=== PATIENT | female | born 1995 | race African-American/Black ===

== ENCOUNTER 2017-01-07 16:55 | Emergency (ER) | payer OTHER ==
[~2017-01-07] VITALS: Ht 170.2 cm; Wt 120.2 kg
[~2017-01-07 16:55] MED LIST: BUTA1CAP27 PO; IBUP-1060 PO
[2017-01-07 17:39] LABS: BILIRUBIN,URINE NEGATIVE (NEG); GLUCOSE,URINE NEGATIVE (NEG); NITRITE,URINE NEGATIVE (NEG); PROTEIN,URINE NEGATIVE (NEG-TRACE); UROBILINOGEN,URINE 0.2 mg/dL (0.2 mg/dL)
[2017-01-07 17:48] LABS: BACTERIA,URINE MODERATE /HPF (0-FEW); RBC,URINE 0 /HPF (0-2); SQUAMOUS EPITHELIAL CELL,UR MOD /LPF
[2017-01-07 17:57] LABS: BASO # 0.1 x10^3/uL (0.0-0.2); BASO % 1 % (0-3); EOS % 1 % (0-3); HEMOGLOBIN 11.8 g/dL (12.0-15.5); LYMPH # 2.4 x10^3/uL (1.0-4.8); LYMPH % 19 % (24-48); MEAN CORPUSCULAR HEMOGLOBIN 29 pg (25-35); MEAN CORPUSCULAR HGB CONC 34 g/dL (31-37); MEAN CORPUSCULAR VOLUME 85 fL (79-100); MONO % 5 % (0-9); NEUT % 75 % (31-73); PLATELET COUNT 236 x10^3/uL (140-400); RED BLOOD COUNT 4.14 x10^6/uL (3.50-5.40); RED CELL DISTRIBUTION WIDTH 14.2 % (11.5-14.5); WHITE BLOOD COUNT 12.8 x10^3/uL (4.0-11.0)
[2017-01-07] MEDS ORDERED: IV NORMAL SALINE 1000ML BAG 1,000 ML IV ONE (18:00)
[2017-01-07 18:04] LABS: CALCIUM 8.9 mg/dL (8.5-10.1); CREATININE 0.5 mg/dL (0.6-1.0); GFR 192.3; POTASSIUM 3.3 mmol/L (3.5-5.1)
[2017-01-07 18:10] LABS: ALBUMIN 2.8 g/dL (3.4-5.0); ALBUMIN/GLOBULIN RATIO 0.7 (1.0-1.7); TOTAL BILIRUBIN 0.2 mg/dL (0.2-1.0); TOTAL PROTEIN 6.7 g/dL (6.4-8.2)
--- NOTE | 2017-01-07 18:37 | PHYS DOC ---
Past Medical History Past Medical History: No Pertinent History, Migraines, Other Additional Past Medical Histor: chronic right leg pain. Past Surgical History: No Surgical History Alcohol Use: None Drug Use: None Adult General Chief Complaint Chief Complaint: ABDOMINAL PAIN IN HPI HPI Patient is a 21 year old female who states that she will be 14 weeks tomorrow. She had a positive test and an ultrasound at 8 weeks at the [place] [facility]. She has had quite a bit of nausea, especially in the mornings, not too much vomiting. That actually has been improving. She has had some "migraines" with her . She has noticed for about 2 weeks she becomes dizzy when she stands up, more dizzy the longer she stands up, sometimes has to sit down because she feels like she might faint. She feels like she "loses her breath". This is her first . This morning she noted a little vaginal spotting. She has had cramping for about one week which was a little worse this morning. This is the first time she 's had spotting during her . The patient has no chronic medical problems. She does have an appointment in a couple of weeks to be seen at an OB doctor in [facility]. Review of Systems Review of Systems Constitutional: Denies fever or chills [] Eyes: Denies change in visual acuity, redness, or eye pain [] HENT: Denies nasal congestion or sore throat [] Respiratory: Denies cough or shortness of breath [] Cardiovascular: Denies chest pain GI: Denies abdominal pain, nausea, vomiting, bloody stools or diarrhea [] : Denies dysuria Musculoskeletal: Denies back pain or joint pain [] Integument: Denies rash or skin lesions [] Neurologic: Denies headache, focal weakness or sensory changes [] Current Medications Current Medications Current Medications Medications (Trade) Dose Ordered Sig/Destiny Start Time Stop Time Status Last Admin Dose Admin Sodium Chloride (Iv Sodium Chloride 0.9% 1000ml Bag) 1,000 ml @ 1,000 mls/hr 1X ONCE 01/07/17 18:00 01/07/17 18:59 DC 01/07/17 18:02 1,000 MLS/HR Allergies Allergies Allergies Coded Allergies Type Severity Reaction Last Updated Verified No Known Drug Allergies 01/12/14 No Physical Exam Physical Exam Constitutional: Well developed, well nourished, no acute distress, non-toxic appearance. Alert, mentating normally, not dyspneic. Positive orthostatic pulse change. HENT: Normocephalic, atraumatic, bilateral external ears normal, nose normal. [ ] Eyes: conjunctiva normal, no discharge. [] Neck: Normal range of motion, no stridor. [] Cardiovascular:Heart rate regular rhythm, no murmur [] Lungs & Thorax: Bilateral breath sounds clear to auscultation [] Abdomen: Bowel sounds normal, soft, no tenderness, no masses, no pulsatile masses. [] Skin: Warm, dry, no erythema, no rash. [] Extremities: No tenderness, no cyanosis, no clubbing, ROM intact, no edema. [] Neurologic: Alert and oriented X 3, normal motor function, normal sensory function, no focal deficits noted. [] Current Patient Data Vital Signs Vital Signs Date Time Temp Pulse Resp B/P Pulse Ox O2 Delivery O2 Flow Rate FiO2 01/07/17 18:30 80 16 107/73 100 Room Air 01/07/17 17:10 98.6 98.6 Lab Values Laboratory Tests Test 01/07/17 17:02 01/07/17 17:12 01/07/17 17:45 Urine Collection Type Unknown Urine Color Yellow Urine Clarity Clear Urine pH 6.0 Urine Specific [place] 1.010 Urine Protein Negativemg/dL (NEG-TRACE) Urine Glucose (UA) Negativemg/dL (NEG) Urine Ketones (Stick) Negativemg/dL (NEG) Urine Blood Negative (NEG) Urine Nitrite Negative (NEG) Urine Bilirubin Negative (NEG) Urine Urobilinogen Dipstick 0.2mg/dL (0.2 mg/dL) Urine Leukocyte Esterase Negative (NEG) Urine RBC 0/HPF (0-2) Urine WBC 1-4/HPF (0-4) Urine Squamous Epithelial Cells Mod/LPF Urine Bacteria Moderate/HPF (0-FEW) Urine Mucus Slight/LPF POC Urine HCG, Qualitative Hcg positive (Negative) White Blood Count 12.8x10^3/uL (4.0-11.0) H Red Blood Count 4.14x10^6/uL (3.50-5.40) Hemoglobin 11.8g/dL (12.0-15.5) L Hematocrit 35.0% (36.0-47.0) L Mean Corpuscular Volume 85fL (79-100) Mean Corpuscular Hemoglobin 29pg (25-35) Mean Corpuscular Hemoglobin Concent 34g/dL (31-37) Red Cell Distribution Width 14.2% (11.5-14.5) Platelet Count 236x10^3/uL (140-400) Neutrophils (%) (Auto) 75% (31-73) H Lymphocytes (%) (Auto) 19% (24-48) L Monocytes (%) (Auto) 5% (0-9) Eosinophils (%) (Auto) 1% (0-3) Basophils (%) (Auto) 1% (0-3) Neutrophils # (Auto) 9.6x10^3uL (1.8-7.7) H Lymphocytes # (Auto) 2.4x10^3/uL (1.0-4.8) Monocytes # (Auto) 0.6x10^3/uL (0.0-1.1) Eosinophils # (Auto) 0.1x10^3/uL (0.0-0.7) Basophils # (Auto) 0.1x10^3/uL (0.0-0.2) Sodium Level 139mmol/L (136-145) Potassium Level 3.3mmol/L (3.5-5.1) L Chloride Level 104mmol/L (98-107) Carbon Dioxide Level 22mmol/L (21-32) Anion Gap 13 (6-14) Blood Urea Nitrogen 3mg/dL (7-20) L Creatinine 0.5mg/dL (0.6-1.0) L Estimated GFR (Cockcroft-Gault) 192.3 BUN/Creatinine Ratio 6 (6-20) Glucose Level 110mg/dL (70-99) H Calcium Level 8.9mg/dL (8.5-10.1) Total Bilirubin 0.2mg/dL (0.2-1.0) Aspartate Amino Transferase (AST) 11U/L (15-37) L Alanine Aminotransferase (ALT) 16U/L (14-59) Alkaline Phosphatase 86U/L (46-116) Total Protein 6.7g/dL (6.4-8.2) Albumin 2.8g/dL (3.4-5.0) L Albumin/Globulin Ratio 0.7 (1.0-1.7) L Laboratory Tests 01/07/17 17:45 Laboratory Tests 01/07/17 17:45 EKG EKG [] Radiology/Procedures Radiology/Procedures [] Course & Med Decision Making Course & Med Decision Making Pertinent Labs and Imaging studies reviewed. (See chart for details) 21-year-old female who is 14 weeks with the complaint of dizziness for 2 weeks. She is orthostatic. She has had nausea but no vomiting. We will give her a liter of IV fluids and check some labs. Complains of abdominal cramping and a little spotting today. We will check an ultrasound and blood type. Her blood type is O+. Ultrasound read by the radiologist. Normal appearing 14 weeks 4 days gestation with no evidence for the source of the spotting. I reassured the patient with the normal ultrasound findings. Pelvic rest until the spotting stops. Follow up with her OB doctor as planned. [] Dragon Disclaimer Dragon Disclaimer This electronic medical record was generated, in whole or in part, using a voice recognition dictation system. Departure Departure Impression: Primary Impression: Dizziness Additional Impression: Second trimester Disposition: HOME, SELF-CARE Condition: STABLE Referrals: NO PCP (PCP) Patient Instructions: Dehydration, Adult, [id number] Additional Instructions: Your tests show that you might be a little dehydrated. Drink plenty of fluids. Ultrasound showed no abnormality, and your baby measured about 14 weeks 4 days. Keep the follow-ups that you have planned. Pelvic rest until you have no spotting for 24 hours. Problem Qualifiers MELITA CROOK MD Jan 07, 2017 18:37
--- NOTE | 2017-01-07 18:57 | RAD ---
PROCEDURE Ob ultrasound less than 14 weeks HISTORY Per and cramping and spotting The LMP of 10/10/2016 corresponds with a 12 week 5 day gestational age and estimated date of confinement 07/17/2017. TECHNIQUE Sonographic examination the was performed by transabdominal technique and multiple static images were obtained. FINDINGS There is a single live intrauterine herpes confirmed at 162 beats per minute. The ovaries appear normal. Visualization structures is limited at this early gestational age. The measurements as follows: BPD 2.8 centimeters 14 weeks 6 days Head circumference 9.9 centimeters 14 weeks 4 days Abdominal circumference 8.0 centimeters 14 weeks 3 days Femur length 1.4 centimeters 14 weeks 2 days The maternal cervix appears normal measures 3.8 centimeters. The amniotic fluid volume appears normal. There is a small pound [place] that measures 2.2 x 2.4 x 2.7 centimeters. Estimated size by ultrasound is 14 weeks 4 days estimated date of confinement 07/04/2017. Visualization of structures is limited at this early gestational age. IMPRESSION Single live intrauterine at 14 weeks 4 days gestational age. Discrepancy with size by LMP is likely secondary to an inaccurate LMP. No significant findings. A short-term followup ultrasound could be performed if clinically indicated otherwise a structural survey would be performed at 18-21 weeks gestational age. Electronically signed by: Mu Ferrera MD (Jan 07, 2017 18:55:36)
[2017-01-07 19:30] VITALS: BP 112/89
== END 2017-01-07 20:07 | disposition home or self-care (01) ==
LOC: ER 16:55
DX: O26.892 Other specified pregnancy related conditions, second trimester (principal); R42 Dizziness and giddiness; Z3A.14 14 weeks gestation of pregnancy; G43.909 Migraine, unspecified, not intractable, without status migrainosus
CPT/HCPCS: 36415; 76805; 80053; 81001; 81025; 85027; 86900; 86901; 87086; 96360; 99285; J7030